=== PATIENT | female | born 1980 | race African-American/Black ===

== ENCOUNTER 2016-08-23 11:20 | Emergency (ER) | payer SELFPAY | END 2016-08-23 12:50 | disposition home or self-care (01) | LOC: FER 11:20 | DX: J40 Bronchitis, not specified as acute or chronic (principal); J34.89 Other specified disorders of nose and nasal sinuses; Z88.6 Allergy status to analgesic agent | CPT/HCPCS: 71020; 87804; 87899; 99283 ==

== ENCOUNTER 2016-10-18 17:14 | Emergency (ER) | payer OTHER ==
[2016-10-18 18:54] LABS: BILIRUBIN NEGATIVE (NEGATIVE); BLOOD 1+ Ery/uL (NEGATIVE); CLARITY CLEAR (CLEAR); COLOR YELLOW (YELLOW); GLUCOSE (U) NORMAL (NORMAL); KETONE (U) NEGATIVE (NEGATIVE); LEUKOCYTES NEGATIVE Leu/uL (NEGATIVE); NITRITE NEGATIVE (NEGATIVE); PROTEIN NEGATIVE (NEGATIVE); UROBILINOGEN 0.2 mg/dL (0.2-1.0)
[2016-10-18 18:59] LABS: BACTERIA TRACE; URINARY RBC RARE
[2016-10-18 19:00] LABS: SQUAMOUS EPITHELIAL CELLS RARE
[2016-10-18 19:15] LABS: BASOPHIL 0.2 % (0-2); EOSINOPHIL 1.5 % (0-5); HCT 37.5 % (37.0-47.0); HGB 12.8 g/dl (12.5-16.0); LYMPHOCYTE 22.6 % (15-48); MCHC 34.1 g/dL (32.0-36.0); MCV 87.8 fL (78.0-100.0); MONOCYTE 5.8 % (0-12); MPV 10.8 fL (6.0-9.5); NEUTROPHIL 69.9 % (41-80); PLT 292 K/uL (150-400); RBC 4.27 M/uL (4.20-5.40); RDW 13.7 % (11.5-14.0); WBC 10.2 K/uL (4.0-10.5)
[2016-10-18 19:23] LABS: CREATININE 0.8 mg/dL (0.5-1.0)
== END 2016-10-18 21:39 | disposition home or self-care (01) ==
LOC: FER 17:14
PROVIDERS: Nurse Practitioner
DX: N81.2 Incomplete uterovaginal prolapse (principal); Z87.42 Personal history of other diseases of the female genital tract
CPT/HCPCS: 36415; 80048; 81001; 85025; 87210; Q9967

== ENCOUNTER 2017-02-19 12:13 | Emergency (ER) | payer SELFPAY ==
[2017-02-19 13:12] LABS: BASOPHIL 0.1 % (0-2); EOSINOPHIL 0.5 % (0-5); HCT 37.3 % (37.0-47.0); HGB 12.5 g/dl (12.5-16.0); LYMPHOCYTE 20.5 % (15-48); MCH 28.9 pg (25.0-31.0); MCHC 33.5 g/dL (32.0-36.0); MCV 86.3 fL (78.0-100.0); MONOCYTE 5.2 % (0-12); MPV 10.1 fL (6.0-9.5); NEUTROPHIL 73.7 % (41-80); PLT 297 K/uL (150-400); RBC 4.32 M/uL (4.20-5.40); RDW 14.6 % (11.5-14.0)
[2017-02-19 13:34] LABS: CREATININE 0.6 mg/dL (0.5-1.0); POTASSIUM 3.2 mmol/L (3.5-5.1)
[2017-02-19 13:35] LABS: ACETAMINOPHEN (TYLENOL) < 5.0 ug/mL (10.0-30.0); ALCOHOL (ETOH) MEDICAL NONE DETECTED; SALICYLATE 11 ug/mL (0-300)
[2017-02-19 15:50] LABS: BILIRUBIN NEGATIVE (NEGATIVE); BLOOD NEGATIVE Ery/uL (NEGATIVE); CLARITY CLEAR (CLEAR); COLOR YELLOW (YELLOW); GLUCOSE (U) NORMAL (NORMAL); KETONE (U) TRACE mg/dL (NEGATIVE); LEUKOCYTES NEGATIVE Leu/uL (NEGATIVE); NITRITE NEGATIVE (NEGATIVE); PROTEIN NEGATIVE (NEGATIVE)
[2017-02-19 16:01] LABS: AMPHETAMINES NEGATIVE (NEGATIVE); BARBITURATES POSITIVE (NEGATIVE); BENZODIAZEPINES NEGATIVE (NEGATIVE); COCAINE POSITIVE (NEGATIVE); MARIJUANA (THC) NEGATIVE (NEGATIVE); METHADONE NEGATIVE (NEGATIVE); TRICYCLIC ANTIDEPRESSANT NEGATIVE (NEGATIVE)
== END 2017-02-19 21:21 | disposition other institution (70) ==
LOC: FER 12:13
PROVIDERS: Nurse Practitioner Family
DX: R45.851 Suicidal ideations (principal); F32.9 Major depressive disorder, single episode, unspecified; F17.210 Nicotine dependence, cigarettes, uncomplicated; Z88.5 Allergy status to narcotic agent; Z79.899 Other long term (current) drug therapy
CPT/HCPCS: 36415; 80048; 80305; 81003; 84703; 85025; G0480

== ENCOUNTER 2020-08-14 15:10 | Emergency (ER) | payer SELFPAY ==
[~2020-08-14 15:10] MED LIST: PREDNISONE20 MG PO; PROMETHAZINE-D118 ML PO; VENTOLIN HFA IN18 GM INH
[2020-08-14 16:15] LABS: BILIRUBIN NEGATIVE (NEGATIVE); BLOOD 3+ Ery/uL (NEGATIVE); CLARITY CLEAR (CLEAR); COLOR YELLOW (YELLOW); GLUCOSE (U) NORMAL (NORMAL); LEUKOCYTES NEGATIVE Leu/uL (NEGATIVE); NITRITE NEGATIVE (NEGATIVE); PROTEIN NEGATIVE (NEGATIVE); UROBILINOGEN 0.2 mg/dL (0.2-1.0)
[2020-08-14 16:17] LABS: BACTERIA 1+
[2020-08-14 16:44] LABS: BASOPHIL 0.4 % (0-2); EOSINOPHIL 1.4 % (0-5); HCT 37.1 % (37.0-47.0); LYMPHOCYTE 29.4 % (15-48); MCH 28.6 pg (25.0-31.0); MCHC 32.3 g/dL (32.0-36.0); MCV 88.5 fL (78.0-100.0); MONOCYTE 4.9 % (0-12); MPV 11.1 fL (6.0-9.5); NEUTROPHIL 63.8 % (41-80); NRBC 0; PLT 310 K/uL (150-400); RBC 4.19 M/uL (4.20-5.40); RDW 13.9 % (11.5-14.0); WBC 7.6 K/uL (4.0-10.5)
[2020-08-14 16:57] LABS: ALBUMIN 3.2 g/dL (3.4-5.0); BILIRUBIN - TOTAL 0.2 mg/dL (0.2-1.0); BUN/CREAT RATIO (CALC) 8.2 RATIO; CREATININE 0.61 mg/dL (0.51-0.95); GLOBULIN (CALCULATION) 3.7 g/dL; TOTAL PROTEIN 6.9 g/dL (6.4-8.2)
[2020-08-14 19:51] LABS: MAGNESIUM 1.9 mg/dL (1.8-2.4); PHOSPHORUS 3.7 mg/dL (2.6-4.7)
[2020-08-14 20:52] LABS: BUN/CREAT RATIO (CALC) 7.3 RATIO; CREATININE 0.55 mg/dL (0.51-0.95); POTASSIUM 3.4 mmol/L (3.5-5.1)
[2020-08-14] MEDS ORDERED: K-DUR20 MEQ PO (21:03)
[2020-08-14] MEDS ORDERED: PHENERGAN25 M1 PO (21:03)
== END 2020-08-14 21:21 | disposition home or self-care (01) ==
LOC: FER 15:10
PROVIDERS: Emergency Medicine; Nurse Practitioner Family
DX: R10.84 Generalized abdominal pain (principal); R11.2 Nausea with vomiting, unspecified; E87.6 Hypokalemia; R51.9 Headache, unspecified; K21.9 Gastro-esophageal reflux disease without esophagitis; J30.2 Other seasonal allergic rhinitis; F17.210 Nicotine dependence, cigarettes, uncomplicated; Z88.5 Allergy status to narcotic agent; Z79.899 Other long term (current) drug therapy
CPT/HCPCS: 36415; 80048; 80053; 81001; 82150; 83690; 83735; 83880; 84100; 85025; 87076; 87088; 87186; J2270; J2405; J2550; J7030; Q9967

== ENCOUNTER 2020-08-19 21:54 | Emergency (ER) | payer SELFPAY ==
[~2020-08-19 21:54] MED LIST changes: +K-DUR20 MEQ PO; +PHENERGAN25 M1 PO
[2020-08-20] LABS: BASOPHIL 0.5 % (0-2); BILIRUBIN NEGATIVE (NEGATIVE); BLOOD NEGATIVE Ery/uL (NEGATIVE); CLARITY CLEAR (CLEAR); COLOR YELLOW (YELLOW); EOSINOPHIL 1.9 % (0-5); GLUCOSE (U) NORMAL (NORMAL); HCT 37.5 % (37.0-47.0); HGB 12.1 g/dl (12.5-16.0); LEUKOCYTES NEGATIVE Leu/uL (NEGATIVE); LYMPHOCYTE 31.9 % (15-48); MCH 28.9 pg (25.0-31.0); MCHC 32.3 g/dL (32.0-36.0); MCV 89.7 fL (78.0-100.0); MONOCYTE 4.7 % (0-12); MPV 11.3 fL (6.0-9.5); NEUTROPHIL 60.9 % (41-80); NITRITE NEGATIVE (NEGATIVE); NRBC 0; PLT 290 K/uL (150-400); PROTEIN NEGATIVE (NEGATIVE); RBC 4.18 M/uL (4.20-5.40); UROBILINOGEN 0.2 mg/dL (0.2-1.0); WBC 8.8 K/uL (4.0-10.5)
[2020-08-20 00:10] LABS: ALBUMIN 3.3 g/dL (3.4-5.0); BILIRUBIN - TOTAL 0.1 mg/dL (0.2-1.0); BUN/CREAT RATIO (CALC) 13.8 RATIO; CREATININE 0.65 mg/dL (0.51-0.95); GLOBULIN (CALCULATION) 3.6 g/dL; POTASSIUM 3.8 mmol/L (3.5-5.1); TOTAL PROTEIN 6.9 g/dL (6.4-8.2)
[2020-08-20 00:33] LABS: MAGNESIUM 1.7 mg/dL (1.8-2.4); PHOSPHORUS 4.3 mg/dL (2.6-4.7)
[2020-08-20 00:53] LABS: LACTIC ACID 1.1 mmol/L (0.4-1.9)
== END 2020-08-20 04:49 | disposition home or self-care (01) ==
LOC: FER 21:54
PROVIDERS: Emergency Medicine Emergency Medical Services
DX: R10.84 Generalized abdominal pain (principal); R11.2 Nausea with vomiting, unspecified; R19.7 Diarrhea, unspecified; F17.200 Nicotine dependence, unspecified, uncomplicated; Z98.84 Bariatric surgery status; Z88.5 Allergy status to narcotic agent; Z79.899 Other long term (current) drug therapy; Z87.42 Personal history of other diseases of the female genital tract
CPT/HCPCS: 36415; 74022; 80053; 81003; 82150; 83605; 83690; 83735; 84100; 84145; 85025; 87339; J2060; J2270; J2550; J7120

== ENCOUNTER 2021-01-19 09:38 | Emergency (ER) | payer OTHER ==
[2021-01-19 11:05] LABS: BILIRUBIN NEGATIVE (NEGATIVE); BLOOD NEGATIVE Ery/uL (NEGATIVE); CLARITY CLEAR (CLEAR); COLOR YELLOW (YELLOW); GLUCOSE (U) NORMAL (NORMAL); LEUKOCYTES NEGATIVE Leu/uL (NEGATIVE); NITRITE NEGATIVE (NEGATIVE); PROTEIN NEGATIVE (NEGATIVE); UROBILINOGEN 0.2 mg/dL (0.2-1.0)
[2021-01-19 11:20] LABS: BASOPHIL 0.3 % (0-2); EOSINOPHIL 0.9 % (0-5); HCT 36.9 % (37.0-47.0); LYMPHOCYTE 30.2 % (15-48); MCH 28.8 pg (25.0-31.0); MCHC 32.5 g/dL (32.0-36.0); MCV 88.7 fL (78.0-100.0); MPV 11.1 fL (6.0-9.5); NEUTROPHIL 63.4 % (41-80); NRBC 0; PLT 270 K/uL (150-400); RBC 4.16 M/uL (4.20-5.40); RDW 14.1 % (11.5-14.0); WBC 10.2 K/uL (4.0-10.5)
[2021-01-19 11:45] LABS: CORONAVIRUS 2019 SARS-COV-2 NEGATIVE (NEGATIVE); INFLUENZA A NAA NEGATIVE (NEGATIVE)
[2021-01-19 12:11] LABS: ALBUMIN 3.4 g/dL (3.4-5.0); BILIRUBIN - TOTAL 0.2 mg/dL (0.2-1.0); BUN/CREAT RATIO (CALC) 12.9 RATIO; CREATININE 0.62 mg/dL (0.51-0.95); GLOBULIN (CALCULATION) 3.9 g/dL; POTASSIUM 3.3 mmol/L (3.5-5.1); TOTAL PROTEIN 7.3 g/dL (6.4-8.2)
[2021-01-19] MEDS ORDERED: ONDANSETRON ODT4 MG PO (13:12)
== END 2021-01-19 14:27 | disposition home or self-care (01) ==
LOC: FER 09:38
PROVIDERS: Internal Medicine
DX: R10.32 Left lower quadrant pain (principal); R10.13 Epigastric pain; R11.2 Nausea with vomiting, unspecified; E87.6 Hypokalemia; R19.7 Diarrhea, unspecified; R06.02 Shortness of breath; R05 Cough; F17.210 Nicotine dependence, cigarettes, uncomplicated; K21.9 Gastro-esophageal reflux disease without esophagitis; Z20.822 Contact with and (suspected) exposure to COVID-19; Z88.5 Allergy status to narcotic agent; Z79.899 Other long term (current) drug therapy
CPT/HCPCS: 36415; 80053; 81003; 85025; J1170; J2405; J7120; U0002

== ENCOUNTER 2021-04-08 08:10 | Emergency (ER) | payer SELFPAY ==
[~2021-04-08 08:10] MED LIST changes: +ONDANSETRON ODT4 MG PO
[2021-04-08 09:32] LABS: INFLUENZA A NAA NEGATIVE (NEGATIVE)
[2021-04-08 09:43] LABS: CORONAVIRUS 2019 SARS-COV-2 POSITIVE (NEGATIVE)
[2021-04-08 10:27] LABS: INR 1.02 (0.9-1.2); PROTHROMBIN TIME 12.8 SECONDS (11.8-13.4); PTT 30.3 SECONDS (24.4-34.7)
[2021-04-08 10:28] LABS: D-DIMER 0.66 ug/mLFEU (0.00-0.41)
[2021-04-08 10:33] LABS: BILIRUBIN NEGATIVE (NEGATIVE); BLOOD NEGATIVE Ery/uL (NEGATIVE); CLARITY CLEAR (CLEAR); COLOR YELLOW (YELLOW); GLUCOSE (U) NORMAL (NORMAL); LEUKOCYTES NEGATIVE Leu/uL (NEGATIVE); NITRITE NEGATIVE (NEGATIVE); PROTEIN NEGATIVE (NEGATIVE); SPECIFIC GRAVITY 1.015 (1.001-1.030); UROBILINOGEN 0.2 mg/dL (0.2-1.0); pH 6.5 (5.0-9.0)
[2021-04-08 10:43] LABS: ALBUMIN 3.1 g/dL (3.4-5.0); BILIRUBIN - TOTAL 0.2 mg/dL (0.2-1.0); C-REACTIVE PROTEIN 1.9 mg/dL (<=0.90); CREATININE 0.67 mg/dL (0.51-0.95); GLOBULIN (CALCULATION) 4.3 g/dL; MAGNESIUM 1.7 mg/dL (1.8-2.4); POTASSIUM 3.4 mmol/L (3.5-5.1); TOTAL PROTEIN 7.4 g/dL (6.4-8.2)
[2021-04-08 10:44] LABS: BASOPHIL 0.5 % (0-2); EOSINOPHIL 0.3 % (0-5); HCT 40.4 % (37.0-47.0); HGB 12.9 g/dl (12.5-16.0); LYMPHOCYTE 35.1 % (15-48); MCH 28.4 pg (25.0-31.0); MCHC 31.9 g/dL (32.0-36.0); MCV 88.8 fL (78.0-100.0); MONOCYTE 7.9 % (0-12); MPV 11.8 fL (6.0-9.5); NEUTROPHIL 55.9 % (41-80); NRBC 0; PLT 212 K/uL (150-400); RBC 4.55 M/uL (4.20-5.40); WBC 3.8 K/uL (4.0-10.5)
[2021-04-08] MEDS ORDERED: NAPROXEN500 MG PO (13:43)
[2021-04-08] MEDS ORDERED: MEDROL 4MG DOSEP4 MG PO (13:43)
[2021-04-08] MEDS ORDERED: VENTOLIN HFA18 GM INH (13:43)
[2021-04-08] MEDS ORDERED: TESSALON PERLE100 M1 PO (13:43)
[2021-04-08] MEDS ORDERED: ONDANSETRON ODT4 MG PO (13:43)
== END 2021-04-08 14:04 | disposition home or self-care (01) ==
LOC: FER 08:10
PROVIDERS: Emergency Medicine
DX: U07.1 COVID-19 (principal); Z23 Encounter for immunization; Z88.5 Allergy status to narcotic agent
CPT/HCPCS: 36415; 71250; 72128; 80053; 81003; 82728; 83615; 83735; 84145; 84484; 85025; 85379; 85610; 85730; 86140; 87880; 93005; J1170; J1885; J2405; M0243; Q0244; U0002